=== PATIENT | female | born 2000 | race Two or more races ===

== ENCOUNTER 2020-05-07 13:55 | Emergency (ER) | payer MEDICAID, OTHER ==
[~2020-05-07] VITALS: Ht 160 cm; Wt 54.6 kg
[2020-05-07 14:12] VITALS: BP 120/73
[2020-05-07] MEDS ORDERED: RABIES VACCINE /PF 2.5 UNITS IM-VACC ONE (16:48)
[2020-05-07] MEDS ORDERED: RABIES IMMUNE GLOBULIN/PF 150 UNITS/ML, 2ML IM ONE ×2 (17:00)
--- NOTE | 2020-05-07 17:11 | NUR ---
medication ordered from pharmacy at this time.
--- NOTE | 2020-05-07 18:09 | NUR ---
pt medicated per emar(immune globulin 3 shots). pt tolerated well.
[2020-05-07] MEDS ORDERED: AMOXICILLIN/CLAV 875-125MG TABLET PO ONE (18:30)
[2020-05-07] MEDS ORDERED: AMOXICILLIN/CLAV 875-125MG TABLET ONE (18:33)
--- NOTE | 2020-05-07 18:36 | NUR ---
PT MEDICATED PER EMAR. PT TOLERATED WELL.
== END 2020-05-07 18:57 | disposition home or self-care (01) ==
LOC: ED 18:00
DX: S61.052A Open bite of left thumb without damage to nail, initial encounter (principal); W55.01XA Bitten by cat, initial encounter; Y93.89 Activity, other specified; Y92.098 Other place in other non-institutional residence as the place of occurrence of the external cause; Y99.8 Other external cause status
CPT/HCPCS: 90375; 96372; 99283

== ENCOUNTER 2020-05-10 09:37 | Emergency (ER) | payer MEDICAID ==
[~2020-05-10] VITALS: Ht 160 cm; Wt 55.0 kg
[2020-05-10 09:43] VITALS: BP 115/72
--- NOTE | 2020-05-10 09:50 | NUR ---
MED BEBETO FROM PHARMACY.
[2020-05-10] MEDS ORDERED: RABIES IMMUNE GLOBULIN/PF 150 UNITS/ML, 2ML IM ONE (10:00)
[2020-05-10] MEDS ORDERED: RABIES VACCINE(IMOVAX) /PF 2.5 UNITS IM-VACC ONE (10:30)
--- NOTE | 2020-05-10 10:49 | NUR ---
TELEPHONE CALL TO PHARMACY REGARDING DELAY. STATES THEY ARE WALKING VACCINE DOWN NOW.
--- NOTE | 2020-05-10 11:06 | NUR ---
Patient given discharge instructions and they have confirmed that they understand the instructions. Patient ambulatory with steady gait.
== END 2020-05-10 11:07 | disposition home or self-care (01) ==
LOC: ED 10:33
DX: Z23 Encounter for immunization (principal); S61.052D Open bite of left thumb without damage to nail, subsequent encounter; Z48.00 Encounter for change or removal of nonsurgical wound dressing; W55.01XD Bitten by cat, subsequent encounter
CPT/HCPCS: 90471; 90675; 99281; 99283

== ENCOUNTER 2020-05-14 10:35 | Emergency (ER) | payer MEDICAID ==
[~2020-05-14] VITALS: Ht 160 cm; Wt 56.2 kg
[2020-05-14 10:42] VITALS: BP 121/75
--- NOTE | 2020-05-14 10:52 | NUR ---
INITIAL PT CONTACT. PT PRESENTS TO THE ED FOR HER 3RD RABIES SHOT. PT HAS HEALING. WELL APPEARING CAT BITE ON THE LEFT THUMB. PT DENIES ANY NEEDS AT THIS TIME. ERP AT BEDSIDE. CALL LIGHT WITHIN REACH.
[2020-05-14] MEDS ORDERED: RABIES VACCINE(IMOVAX) /PF 2.5 UNITS IM-VACC ONE (11:00)
== END 2020-05-14 11:58 | disposition home or self-care (01) ==
LOC: ED 11:26
DX: S61.052D Open bite of left thumb without damage to nail, subsequent encounter (principal); Z20.3 Contact with and (suspected) exposure to rabies; W55.01XD Bitten by cat, subsequent encounter
CPT/HCPCS: 90471; 90675; 99281

== ENCOUNTER 2020-05-21 09:47 | Emergency (ER) | payer MEDICAID ==
[~2020-05-21] VITALS: Ht 160 cm; Wt 56.0 kg
[2020-05-21 09:59] VITALS: BP 111/61
[2020-05-21] MEDS ORDERED: RABIES VACCINE /PF 2.5 UNITS IM-VACC STA (10:07)
== END 2020-05-21 10:34 | disposition home or self-care (01) ==
LOC: ED 10:10
DX: Z20.3 Contact with and (suspected) exposure to rabies (principal); S61.052D Open bite of left thumb without damage to nail, subsequent encounter; W55.01XD Bitten by cat, subsequent encounter
CPT/HCPCS: 90471; 90675; 99281